=== PATIENT | female | born 1990 | race Caucasian/White ===

== ENCOUNTER 2017-01-03 04:05 | Emergency (ER) | payer SELFPAY | END 2017-01-03 04:29 | disposition home or self-care (01) | LOC: SED 04:05 | DX: H66.91 Otitis media, unspecified, right ear (principal); J01.90 Acute sinusitis, unspecified | CPT/HCPCS: 99283 ==

== ENCOUNTER 2017-07-01 13:30 | Emergency (ER) | payer OTHER ==
--- NOTE | ~2017-07-01 | CR63 ---
[facility] A Service of [facility] RADIOLOGY TEXT RESULTS PATIENT: JAVY THOMAS LOCATION: SED : 91 UNIT #: [id number] AGE: [address]: REINIER COURTNEY SEX: F ORDER DR: [id number] [place] [id number] E MR#: [id number] Acc #: [id number] NAME: JAVY THOMAS : 1990 SEX: F STUDY DATE/TIME: 07/01/2017 15:21 UNIT: SED ROOM: STUDY DESCRIPTION: CR Chest 2 View Attending Physician: Reinier Courtney R.N. Ordering Physician: Reinier Courtney R.N. Primary Care Physician: No Primary Care Physician MEDICAL IMAGING REPORT This report is preliminary unless electronic signature is present. EXAM Two-view chest, 07/01/2017. INDICATIONS 26-year-old female with a cough, headache, throat complaints, runny nose and ear pain symptoms 5 days. TECHNIQUE Two-view chest. COMPARISON No comparisons. FINDINGS Cardiac silhouette is unremarkable. The vascularity is normal. Lungs are clear. There is thoracic kyphosis. This may be partly positional in nature. IMPRESSION Negative chest. We have no comparisons. Dictated by... Andres Bowman M.D. THIS IS AN ELECTRONICALLY VERIFIED REPORT Andres Bowman M.D. at 07/02/2017 6:38 AM JEREMY/trish TD: 07/01/2017 19:21 JOB #: [id number] [facility] A Service of [facility] RADIOLOGY TEXT RESULTS PATIENT: JAVY THOMAS LOCATION: SED : 91 UNIT #: [id number] AGE: [address]: REINIER COURTNEY SEX: F ORDER DR: MEDICAL IMAGING REPORT Page 1 of 1
[2017-07-01] MEDS ORDERED: NO MEDICATIONS (13:58)
== END 2017-07-01 16:20 | disposition home or self-care (01) ==
LOC: SED 13:38
DX: J06.9 Acute upper respiratory infection, unspecified (principal); J30.9 Allergic rhinitis, unspecified
CPT/HCPCS: 71020; 84703; 87651; 94640; 99284